=== PATIENT | male | born 2000 | race Caucasian/White ===

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

== ENCOUNTER 2023-02-03 15:38 | Emergency (ER) | payer MEDICAID ==
[2023-02-03 15:51] VITALS: BP 130/72; O2SAT 100
--- NOTE | 2023-02-03 16:38 | ED Physician Documentation ---
History of Present Illness - Stated complaint Stated Complaint: SOA,TIGHT CHEST - Chief complaint Chief Complaint: MHE - History obtained from History obtained from: Patient - Additonal information Additional information: For the last 2 years he has been dealing with chest pain related to anxiety and getting anxiety attacks in situations that really should not be stressful for him. A few weeks ago he had a particularly bad 1 and a friend gave him some sort of medication that made him feel better. He does not know what it is initially. PD PAST MEDICAL HISTORY - Past Surgical History Past Surgical History: No - Present Medications Home Medications: Ambulatory Orders Medication Instructions Recorded Confirmed Bisacodyl Supp [Dulcolax Supp] 10 mg [place] ONCE PRN #10 supp 02/22/16 Docusate Sodium 100 mg PO DAILY PRN #30 capsule 02/22/16 hydrOXYzine HCL [Hydroxyzine HCl] 25 mg PO BID PRN #30 tablet 02/03/23 - Allergies Allergies/Adverse Reactions: Allergies Allergy/AdvReac Type Severity Reaction Status Date / Time No Known Drug Allergies Allergy Verified 02/03/23 15:42 - Social History Does the pt smoke?: No Smoking Status: Never smoker Does the pt drink ETOH?: No Does the pt have substance abuse?: No - Immunizations Immunizations are current?: Yes - POLST Patient has POLST: No PD ED PE NORMAL - Vitals Vital signs reviewed: Yes - General General: Alert and oriented X 3, No acute distress - Neck Neck: Supple, no meningeal sign, No bony TTP - Cardiac Cardiac: RRR, No murmur - Respiratory Respiratory: No respiratory distress, Clear bilaterally - Abdomen Abdomen: Non tender - Extremities Extremities: No edema, No calf tenderness / cord - Neuro Neuro: Alert and oriented X 3, Normal speech Results - Vitals Vitals: Vital Signs - 24 hr 02/03/23 15:42 Temperature 36.5 C Heart Rate 75 Respiratory 16 Rate Blood Pressure 130/72 O2 Saturation 100 Oxygen O2 Source Room air PD Medical Decision Making - ED course ED course: He was able to text his friend and find out what medication was helpful for him. He responded that it was hydroxyzine which I have no problem prescribing for him for his anxiety. Departure - Departure Disposition: 01 Home, Self Care Clinical Impression: Anxiety Condition: Good Record reviewed to determine appropriate education?: Yes Instructions: ED Panic Attack Prescriptions: hydrOXYzine HCL [Hydroxyzine HCl] 25 mg PO BID PRN #30 tablet PRN Reason: Anxiety Comments: Call your doctor to arrange a follow-up appointment, make the next available appointment. In the interim, return anytime if worse or if new symptoms develop. Forms: PCP List
== END 2023-02-03 16:54 | disposition home or self-care (01) ==
LOC: ED 15:38
DX: F41.9 Anxiety disorder, unspecified (principal)
CPT/HCPCS: 99282; 99283